=== PATIENT | female | born 1940 | race Caucasian/White ===

== ENCOUNTER 2018-03-22 20:11 | Emergency (ER) | payer OTHER ==
[~2018-03-22] VITALS: Ht 162.6 cm; Wt 79.8 kg
[~2018-03-22 20:11] MED LIST: AMLODIPINE BESYLATE; CALCAVITD PO; CRANBERRY PLUS1 EAC1 PO; Desyrel50 MG PO; EDARBYCLOR 40-1 EACH PO; ERGO400 PO; FOLI1 PO; FOLIC ACID; HCTZ; LOSARTAN POTASSIUM; MEGA RED PO; MEGARED OMEGA-1 EAC1 PO; METHOTREXATE; METTREX2.5 PO; OMEP20ER; PROBIOTIC1 EAC1 PO; TRAZONE; TURMERIC CURCUMIN PO; VITAMIN B122500 MCG PO
[2018-03-22] MEDS ORDERED: METO25ER PO (20:34)
[2018-03-22 21:27] LABS: Influenza A Negative (NEGATIVE); Influenza B Negative (NEGATIVE)
[2018-03-22 22:02] LABS: Source, Urine Clean Catch
[2018-03-22 22:05] LABS: Bilirubin, Urine Neg (Neg); Blood, Urine 2+ (Neg); Glucose Qualitative, Urine Neg (Neg); Ketones, Urine Neg (Neg); Leukocyte Esterase, Urine Neg (Neg); Nitrite, Urine Neg (Neg); Protein, Urine 2+ (Neg); Urobilinogen, Urine NORM (Normal)
[2018-03-22 22:12] LABS: Appearance, Urine Clear (Clear); Color, Urine Yellow (P-Yellow)
[2018-03-22 22:13] LABS: Amorphous Light (0-Heavy); Bacteria Many /hpf; Red Blood Cells, Urine 0-2 /hpf (0-2); Squamous Epithelial Cells Mod /hpf (Few); White Blood Cells, Urine 0-2 /hpf (0-5)
[2018-03-22 22:21] LABS: BASOPHILS ABSOLUTE AUTO 0.02 K/mm3 (0.00-0.23); BASOPHILS PERCENT AUTO 1 % (0-2); EOSINOPHILS ABSOLUTE AUTO 0.03 K/mm3 (0.00-0.68); EOSINOPHILS PERCENT AUTO 1 % (0-6); Hematocrit 35.2 % (33.0-51.0); Hemoglobin 11.9 g/dL (11.5-16.0); IMMATURE GRAN ABSOLUTE AUTO 0.01 K/mm3 (0.00-0.10); IMMATURE GRAN PERCENT AUTO 0 % (0-1); LYMPHOCYTES ABSOLUTE AUTO 0.28 K/mm3 (0.84-5.20); LYMPHOCYTES PERCENT AUTO 8 % (21-46); MONOCYTES PERCENT AUTO 3 % (4-13); Mean Corpuscular HGB 35.3 pg (26.0-34.0); Mean Corpuscular HGB Conc 33.8 g/dL (31.5-36.5); Mean Platelet Volume 10.8 fL (9.1-12.4); NEUTROPHILS ABSOLUTE AUTO 3.06 K/mm3 (1.96-9.15); NEUTROPHILS PERCENT AUTO 87 % (41-73); Platelet Count 75 K/mm3 (150-400); RDW Coefficient Variation 13.6 % (11.7-14.2); RDW Standard Deviation 51.2 fL (35.1-46.3); Red Blood Cell Count 3.37 M/mm3 (3.80-5.20)
[2018-03-22 22:23] LABS: Mean Corpuscular Volume 105 fL (80-100)
[2018-03-22 22:41] LABS: Albumin, Blood 3.8 g/dL (3.4-5.0); Albumin/Globulin Ratio 1.1 (0.8-1.8); Bun/Creatinine Ratio 34.4 (12.0-20.0); Calcium, Blood 9.2 mg/dL (8.5-10.1); Creatinine, Blood 1.31 mg/dL (0.40-1.00); Globulin, Blood 3.6 g/dL (2.2-4.0); Potassium, Blood 3.5 mmol/L (3.5-5.5); Total Protein, Blood 7.4 g/dL (6.4-8.2)
[2018-03-22] MEDS ORDERED: ALBU90OI INH (23:01)
[2018-03-22] MEDS ORDERED: LEVFLO500 PO (23:01)
== END 2018-03-22 23:22 | disposition home or self-care (01) ==
LOC: ER 20:11
PROVIDERS: Emergency Medicine
DX: J18.9 Pneumonia, unspecified organism (principal); E86.0 Dehydration; I12.9 Hypertensive chronic kidney disease with stage 1 through stage 4 chronic kidney disease, or unspecified chronic kidney disease; N18.9 Chronic kidney disease, unspecified; Z79.899 Other long term (current) drug therapy
CPT/HCPCS: 36415; 71046; 80053; 81001; 83605; 85025; 87086; 87804; 93005; 93010; 99284; P9612

== ENCOUNTER → 2018-11-28 | Outpatient (CLI) | payer OTHER ==
[~2018-11-28] MED LIST changes: +ALBU90OI INH; +LEVFLO500 PO; +METO25ER PO
== END ==
LOC: LAB 17:50 → LAB SHORT 17:50
DX: R30.0 Dysuria (principal)
CPT/HCPCS: 87077; 87086; 87186

== ENCOUNTER 2019-02-16 11:33 | Observation (INO) | payer OTHER ==
[~2019-02-16] VITALS: Ht 162.6 cm; Wt 71.7 kg
[~2019-02-16 11:33] MED LIST changes: +CHOL10002 PO; +EDARBYCLOR 40-1 EAC1 PO; -EDARBYCLOR 40-1 EACH PO; -ERGO400 PO; -MEGARED OMEGA-1 EAC1 PO; +MEGARED OMEGA-1 EAC2 PO; +VITAMIN B-121000 MCG PO; -VITAMIN B122500 MCG PO
[2019-02-16 12:18] LABS: BASOPHILS ABSOLUTE AUTO 0.03 K/mm3 (0.00-0.23); BASOPHILS PERCENT AUTO 0 % (0-2); EOSINOPHILS ABSOLUTE AUTO 0.07 K/mm3 (0.00-0.68); EOSINOPHILS PERCENT AUTO 1 % (0-6); Hematocrit 37.9 % (33.0-51.0); Hemoglobin 12.3 g/dL (11.5-16.0); IMMATURE GRAN ABSOLUTE AUTO 0.03 K/mm3 (0.00-0.10); IMMATURE GRAN PERCENT AUTO 0 % (0-1); LYMPHOCYTES ABSOLUTE AUTO 0.81 K/mm3 (0.84-5.20); LYMPHOCYTES PERCENT AUTO 11 % (21-46); MONOCYTES ABSOLUTE AUTO 0.73 K/mm3 (0.16-1.47); MONOCYTES PERCENT AUTO 10 % (4-13); Mean Corpuscular HGB 35.4 pg (26.0-34.0); Mean Corpuscular HGB Conc 32.5 g/dL (31.5-36.5); Mean Corpuscular Volume 109 fL (80-100); Mean Platelet Volume 10.8 fL (9.1-12.4); NEUTROPHILS ABSOLUTE AUTO 5.78 K/mm3 (1.96-9.15); NEUTROPHILS PERCENT AUTO 78 % (41-73); Platelet Count 156 K/mm3 (150-400); RDW Coefficient Variation 14.8 % (11.7-14.2); RDW Standard Deviation 59.4 fL (35.1-46.3); Red Blood Cell Count 3.47 M/mm3 (3.80-5.20); White Blood Cell Count 7.45 K/mm3 (4.00-11.30)
[2019-02-16 13:00] LABS: Alanine Aminotransfer (ALT/SGP 15 U/L (12-78); Albumin, Blood 3.4 g/dL (3.4-5.0); Albumin/Globulin Ratio 0.9 (0.8-1.8); Alk Phos 71 U/L (50-136); Anion Gap 6 mmol/L (6-16); Aspartate Aminotrans (AST/SGOT 34 U/L (12-37); Bilirubin, Total 1.2 mg/dL (0.1-1.0); Blood Urea Nitrogen 23 mg/dL (8-24); Bun/Creatinine Ratio 15.8 (12.0-20.0); CO2, Blood 25 mmol/L (21-32); Calcium, Blood 9.1 mg/dL (8.5-10.1); Chloride, Blood 107 mmol/L (98-108); Creatinine, Blood 1.46 mg/dL (0.40-1.00); Globulin, Blood 3.8 g/dL (2.2-4.0); Glomerular Filtration Rate 37 (60-); Glucose, Blood 119 mg/dL (70-99); Potassium, Blood 3.7 mmol/L (3.5-5.5); Sodium, Blood 138 mmol/L (136-145); Total Protein, Blood 7.2 g/dL (6.4-8.2); Troponin I <0.015 ng/mL (0.000-0.040)
[2019-02-16] MEDS ORDERED: TRAZ50 PO (14:17)
[2019-02-16] MEDS ORDERED: OMEPRAZOLE MAGN20 MG PO (15:38)
[2019-02-16 17:40] LABS: Thyroid Stimulating Hormone 0.873 uIU/mL (0.360-4.800)
--- NOTE | 2019-02-16 17:49 | NUR ---
PT IS AOX4 AND COOPERATIVE OF ALL CARE. PT DENIES ANY CHEST PAIN, BUT STATES SHE DOES GET SHORT OF BREATH AND EXPERIENCES PALPATATIONS. TELE WAS CONNECTED AND PCU REPORTED PT WAS AFIB RUNNING 130-150. DR CLANCY WAS NOTIFIED AND HE ORDERED METOPROLOL 50MG IR BID WITH FIRST DOSE NOW AND TO CALL HALF HOUR AFTER FIRST DOSE WITH VITALS. WILL CONTINUE TO MONITOR AT THIS TIME. PT STANDBY ASSIST JUST TO HELP WITH HER SCDs AND IV.
--- NOTE | 2019-02-16 18:43 | NUR ---
CALL FROM PCU TELE HALF HOUR AFTER METROPROLOL 50MG GIVEN STATED PT REVERTED TO NSR IN THE 80s.
--- NOTE | 2019-02-17 04:22 | NUR ---
78 Y/O FEMALE RESTED COMFORTABLY IN BED ALL EVENING. PT DENIES PAIN OR NAUSEA. PTS TELEMETRY REFLECTS NSR WITH HEART RATE 80 PER MEMBER SERVICES COORDINATOR MAYTE. PTS BED LOW POSITION, CALL LIGHT AT SIDE.
[2019-02-17 05:53] LABS: Bun/Creatinine Ratio 16.7 (12.0-20.0); Calcium, Blood 8.8 mg/dL (8.5-10.1); Creatinine, Blood 1.14 mg/dL (0.40-1.00); Potassium, Blood 3.8 mmol/L (3.5-5.5)
--- NOTE | 2019-02-17 11:34 | NUR ---
Echocardiogram completed.
[2019-02-17 12:30] LABS: International Normalized Ratio 1.11; Prothrombin Time Results 11.7 Sec (9.7-11.5)
--- NOTE | 2019-02-17 14:54 | NUR ---
CONSULT DR STEELE HAS BEEN IN TO SEE THE PT, PLAN FOR BIOPSY TOMORROW, NO NEED FOR HER TO BE NPO, PER DR STEELE
--- NOTE | 2019-02-17 17:08 | NUR ---
BIOPSY ULTRASOUND HAD AN OPENING, PT GOING FOR BIOPSY NOW
--- NOTE | 2019-02-17 17:37 | NUR ---
SUMMARY PT HAVING PROCEDURE NOW, SHE HAS BEEN ALERT AND ORIENTED AND MOSTLY INDEPENDENT IN THE ROOM, PLEASANT AND COOPERATIVE WITH CARE, DAUGHTER HAS BEEN IN TO VISIT, VSS, NO ACUTE CHANGES, WILL CONT TO MONITOR
--- NOTE | 2019-02-17 17:49 | NUR ---
TELE PT CONVERTED TO AFIB PER TELE, PT CURRENTLY IN PROCEDURE, WILL NOTIFY DR CLANCY
--- NOTE | 2019-02-17 17:52 | NUR ---
AFIB DR CLANCY NOTIFIED PT IN AFIB, RATE LOW 100'S, PT WITH A HISTORY OF AFIB
--- NOTE | 2019-02-17 18:12 | NUR ---
Pt visiting with daughter. Review of what Dr huggins explained for procedure. Pt complains of headache and nausea and fatigue. She has not been able to sleep. Brief supportive conversation and offered our office as aresource for support for and expressed that we need to help with a plan of care. Review of sympoms and patient needs with nursing. Suggest adding secondary nausea med if zofran not covering her well to reduce fatigue. Will see if chaplian support is needed. Did not cover ADvance directive as she needs to be full code for procedure and she wanted to speak with her daughter first.
--- NOTE | 2019-02-17 18:37 | NUR ---
PT BACK TO HER ROOM POST PROCEDURE, BANDAID IN PLACE TO HER R ANTERIOLATERAL SIDE OF HER NECK, NO DRAINAGE, PT VIVIANA WELL
--- NOTE | 2019-02-17 20:54 | NUR ---
NO ACUTE ISSUES NOTED, PATIENT CONVERTED BACK TO NSR @ 1847. NO CURRENT COMPLAINTS OF PAIN OR DISCOMFORT NOTED. WILL CONTINUE TO MONITOR FOR CHANGES.
--- NOTE | 2019-02-17 22:17 | NUR ---
2030 REPORT RECEIVED. PT RESTING COMFORTABLY IN BED, NO DISTRESS. BED ALARM APPLIED FOR SAFETY.
--- NOTE | 2019-02-18 05:03 | NUR ---
78 Y/O FEMALE RESTED COMFORTABLY IN BED ALL NIGHT. PTS TELEMETRY REFLECTS SINUS BRADYCARDIA PER JABOB DISABILITY MANAGER. PT DENIES PAIN OR NAUSEA. PTS CALL AT SIDE WITH BED IN LOW POSITION.
[2019-02-18] MEDS ORDERED: METO50 PO (11:46)
[2019-02-18] MEDS ORDERED: XARELTO15 MG PO (11:46)
[2019-02-18] MEDS ORDERED: ONDA4ODT PO (11:48)
--- NOTE | 2019-02-18 14:50 | NUR ---
CONVERTED FROM SR TO AFIB RATE 110'S-120'S, PT ASYMPTOMATIC, REPORTED TO DR CLANCY, STATES PT STILL OKAY TO DC AFTER CT COMPLETE @ 1500.
--- NOTE | 2019-02-18 16:57 | NUR ---
SHIFT SUMMARY/DC PT HAS HAD NO ACUTE CHANGES THIS SHIFT, MEDICATED 1X FOR NAUSEA, PT DC'D AFTER CT WAS COMPLETED, INSTRUCTED TO FOLLOW UP W/PRIMARY & ONCOLOGY. REVIEWED DC INSTRUCTIONS W/PT & DAUGHTERS, ALL VERBALIZED UNDERSTANDING. PT TRANSPORTED VIA W/C TO DC IN PRIVATE VEHICLE @ 2480.
== END 2019-02-18 16:00 | disposition home or self-care (01) ==
LOC: ER 11:33 → MEDS 11:34 → ENPENDDIS 02-18 11:00 → MEDS 02-18 16:00
PROVIDERS: Internal Medicine; Physician Assistant; ADMIT Internal Medicine
DX: R06.00 Dyspnea, unspecified (principal); N17.9 Acute kidney failure, unspecified; I12.9 Hypertensive chronic kidney disease with stage 1 through stage 4 chronic kidney disease, or unspecified chronic kidney disease; N18.3 Chronic kidney disease, stage 3 (moderate); I48.91 Unspecified atrial fibrillation; C34.32 Malignant neoplasm of lower lobe, left bronchus or lung; C79.89 Secondary malignant neoplasm of other specified sites; J98.11 Atelectasis; M06.9 Rheumatoid arthritis, unspecified; D69.6 Thrombocytopenia, unspecified; Z85.3 Personal history of malignant neoplasm of breast; Z88.5 Allergy status to narcotic agent; Z79.899 Other long term (current) drug therapy
CPT/HCPCS: 36415; 38505; 70450; 71046; 71250; 74177; 76942; 80048; 80053; 82607; 82746; 83880; 84145; 84443; 84484; 85025; 85610; 93005; 93010; 93306; 96360; 99285-25; J1650; J2405; J7120; Q9967

== ENCOUNTER 2019-03-11 09:03 | Inpatient (IN) | payer OTHER ==
[~2019-03-11] VITALS: Ht 162.6 cm; Wt 73.1 kg
[~2019-03-11 09:03] MED LIST changes: -CRANBERRY PLUS1 EAC1 PO; +CRANBERRY PO; +Lopressor 25 mg25 MG PO; +OMEPRAZOLE MAGN20 MG PO; +ONDA4ODT MM; +TRAZ50 PO; +XARELTO15 MG PO
[2019-03-11] MEDS ORDERED: FURO20 PO ×2 (09:21→16:38)
[2019-03-11] MEDS ORDERED: MIRT15 PO (09:21)
[2019-03-11 09:50] LABS: Alanine Aminotransfer (ALT/SGP 11 U/L (12-78); Albumin, Blood 2.5 g/dL (3.4-5.0); Alk Phos 63 U/L (50-136); Anion Gap 10 mmol/L (6-16); Aspartate Aminotrans (AST/SGOT 12 U/L (12-37); Bilirubin, Total 0.6 mg/dL (0.1-1.0); Blood Urea Nitrogen 34 mg/dL (8-24); Bun/Creatinine Ratio 36.2 (12.0-20.0); CO2, Blood 23 mmol/L (21-32); Calcium, Blood 8.4 mg/dL (8.5-10.1); Chloride, Blood 106 mmol/L (98-108); Creatinine, Blood 0.94 mg/dL (0.40-1.00); Globulin, Blood 2.6 g/dL (2.2-4.0); Glomerular Filtration Rate >60 (60-); Glucose, Blood 143 mg/dL (70-99); Magnesium, Blood 1.7 mg/dL (1.6-2.4); Potassium, Blood 3.8 mmol/L (3.5-5.5); Sodium, Blood 139 mmol/L (136-145); Total Protein, Blood 5.1 g/dL (6.4-8.2)
[2019-03-11 09:51] LABS: BASOPHILS ABSOLUTE AUTO 0.01 K/mm3 (0.00-0.23); BASOPHILS PERCENT AUTO 0 % (0-2); Mean Corpuscular HGB 34.2 pg (26.0-34.0); Mean Corpuscular HGB Conc 31.1 g/dL (31.5-36.5); Mean Corpuscular Volume 110 fL (80-100); RDW Coefficient Variation 13.6 % (11.7-14.2); RDW Standard Deviation 53.8 fL (35.1-46.3); White Blood Cell Count 4.19 K/mm3 (4.00-11.30)
[2019-03-11 09:57] LABS: EOSINOPHILS ABSOLUTE AUTO 0.08 K/mm3 (0.00-0.68); EOSINOPHILS PERCENT AUTO 2 % (0-6); IMMATURE GRAN ABSOLUTE AUTO 0.07 K/mm3 (0.00-0.10); IMMATURE GRAN PERCENT AUTO 2 % (0-1); LYMPHOCYTES ABSOLUTE AUTO 0.77 K/mm3 (0.84-5.20); LYMPHOCYTES PERCENT AUTO 18 % (21-46); MONOCYTES ABSOLUTE AUTO 0.28 K/mm3 (0.16-1.47); MONOCYTES PERCENT AUTO 7 % (4-13); Mean Platelet Volume 13.3 fL (9.1-12.4); NEUTROPHILS ABSOLUTE AUTO 2.98 K/mm3 (1.96-9.15); NEUTROPHILS PERCENT AUTO 71 % (41-73)
[2019-03-11 09:58] LABS: Hematocrit 13.2 % (33.0-51.0); Hemoglobin 4.1 g/dL (11.5-16.0)
[2019-03-11 09:59] LABS: Platelet Count 13 K/mm3 (150-400)
[2019-03-11] MEDS ORDERED: METTREX2.5 PO (13:41)
--- NOTE | 2019-03-11 17:00 | NUR ---
ASSUMED CARE / SHIFT SUMMARY: REPORT RECIEVED FROM STEVE Andujar RN IN ED. PT ARRIVED TO UNIT AT APPROX 1455. ON ARRIVAL, THE PT IS A&O, PLEASANT & COOPERATIVE. HER 2ND UNIT OF PRBCs IS INFUSING AT THE TIME OF ARRIVAL. THE PT's SKIN IS P/W/D. SHE DENIES PAIN & STS FEELING SLIGHTLY WEAK, BUT IMPROVING SINCE RECEIVING 1ST UNIT OF PRBCs. LS ARE CLEAR, DIM IN RLL, DIM/ABSENT IN LLL. SHE ARRIVES ON RA W/ O2 SATS > 92%, STS SHE DOES NOT WEAR HOME O2. MONITOR SHOWS NSR W/ HR 70s. BP STABLE. PT HAS HAD C/O DARK TARRY STLS AT HOME x1 WEEK, GUAIAC+ IN ED PER REPORT. PT VOIDED IN ED BUT NO URINE SPECIMEN WAS COLLECTED FOR ORDERED UA AT THAT TIME. SKIN OVERALL IS CDI. PROTONIX DRIP PER ORDERS. ADMISSION COMPLETE, MEDS RECONCILLED. NO ACUTE CHANGES SINCE ASSUMING CARE OF THIS PT. BLOOD TRANSFUSION HAS BEEN COMPLETED & PT REMAINS A&O. PT's DAUGHTERS HAVE STEPPED OUT FOR THE EVENING. FOLLOW-UP LABS BEING DRAWN AT THIS TIME. PT REMAINS ON RA, MONITOR SHOWS SR & BP STABLE. WILL CONTINUE TO MONITOR & REPORT OFF TO ONCOMING RN.
[2019-03-11 17:32] LABS: BASOPHILS ABSOLUTE AUTO 0.01 K/mm3 (0.00-0.23); BASOPHILS PERCENT AUTO 0 % (0-2); Hematocrit 20.6 % (33.0-51.0); Hemoglobin 6.8 g/dL (11.5-16.0); Mean Corpuscular HGB 32.1 pg (26.0-34.0); Mean Platelet Volume 12.6 fL (9.1-12.4); RDW Coefficient Variation 19.4 % (11.7-14.2); RDW Standard Deviation 66.5 fL (35.1-46.3); Red Blood Cell Count 2.12 M/mm3 (3.80-5.20)
[2019-03-11 17:40] LABS: Source, Urine Clean Catch
[2019-03-11 17:42] LABS: EOSINOPHILS ABSOLUTE AUTO 0.04 K/mm3 (0.00-0.68); EOSINOPHILS PERCENT AUTO 1 % (0-6); IMMATURE GRAN ABSOLUTE AUTO 0.03 K/mm3 (0.00-0.10); IMMATURE GRAN PERCENT AUTO 1 % (0-1); LYMPHOCYTES ABSOLUTE AUTO 0.97 K/mm3 (0.84-5.20); LYMPHOCYTES PERCENT AUTO 31 % (21-46); MONOCYTES ABSOLUTE AUTO 0.15 K/mm3 (0.16-1.47); MONOCYTES PERCENT AUTO 5 % (4-13); Mean Corpuscular Volume 97 fL (80-100); NEUTROPHILS PERCENT AUTO 61 % (41-73)
[2019-03-11 17:48] LABS: Platelet Count 13 K/mm3 (150-400)
[2019-03-11 18:07] LABS: Appearance, Urine Clear (Clear); Bilirubin, Urine Neg (Neg); Blood, Urine 2+ (Neg); Color, Urine Yellow (P-Yellow); Glucose Qualitative, Urine Neg (Neg); Ketones, Urine Neg (Neg); Leukocyte Esterase, Urine Neg (Neg); Nitrite, Urine Neg (Neg); Protein, Urine Neg (Neg); Urobilinogen, Urine 2+ (Normal)
--- NOTE | 2019-03-11 18:23 | NUR ---
DR. RESTREPO: CALL TO PROVIDER's PAGER HAS BEEN PLACED. PLAN TO NOTIFY HIM OF FOLLOW-UP H&H RESULTS WELL CRITICAL LOW PLT COUNT. WILL CONTINUE TO MONITOR & AWAIT CALLBACK.
--- NOTE | 2019-03-11 18:32 | NUR ---
DR. RESTREPO CALLBACK: CALL RETURNED FROM PROVIDER. HE STS TO TRANSFUSE 2 MORE UNITS OF PRBCs AT THIS TIME WELL 1 MORE UNIT PLTs & 2 UNITS OF FFP. AFTER TRANSFUSION COMPLETE, RECHECK H&H. CONTINUE TO TRANSFUSE PRBCs UNTIL HBG > 8. WILL CONTINUE TO MONITOR & UPDATE NEEDED.
[2019-03-11 18:34] LABS: Red Blood Cells, Urine 0-2 /hpf (0-2); White Blood Cells, Urine Rare /hpf (0-5)
[2019-03-11 18:35] LABS: Bacteria Rare /hpf; Mucus Light (0-Heavy); Squamous Epithelial Cells Few /hpf (Few)
--- NOTE | 2019-03-11 20:01 | NUR ---
HOSPITALIST NOTIFIED: START OF SHIFT ASSESSMENT PT NOTED TO HAVE RIGHT SIDED FACIAL DROOP AND SLIGHT RIGHT UPPER EXTREM DRIFT. PT'S DAUGHTER WHO IS AT BEDSIDE STATED THAT THIS WAS NEW. DR. TENORIO NOTIFIED AND CT SCAN W/O CONTRAST ORDERERED. LAB NOTIFIED RE: RECENT ORDER FOR PLATLETS AND RBC AND RELEASED UNIT READY SLIPS. WILL START NEXT UNIT OF PLATELETS THEN GO TO CT. MANAGER OF HOSPITAL NOTIFIED.
--- NOTE | 2019-03-11 21:47 | NUR ---
PT TO CT AT APPRX 1999 THEN BACK TO ROOM. RESULTS CALLED TO DR. TENORIO. NO NEW ORDERS GIVEN. PT CURRENTLY RECEIVING THIRD UNIT OF PRBC'S. PT UP TO BEDSIDE COMMODE WITH ONE-PERSON ASSIST. PT NOW BACK INTO BED WITH WARM BLANKETS APPLIED. VSS. CALL LIGHT WITHIN REACH.
--- NOTE | 2019-03-12 00:55 | NUR ---
PT WITH NO NEW CHANGES. PT'S RIGHT SIDED FACIAL DROOP IMPROVING, JENNIFER, PT GETTING UP TO BSC WITH MINIMAL ASSIST. PT RECEIVING UNIT #4 PRBC. PT TOLERATING WELL. VSS. CALL LIGHT WITHIN REACH.
[2019-03-12 04:18] LABS: BASOPHILS ABSOLUTE AUTO 0.01 K/mm3 (0.00-0.23); BASOPHILS PERCENT AUTO 1 % (0-2); Hematocrit 19.9 % (33.0-51.0); Hemoglobin 6.8 g/dL (11.5-16.0); LYMPHOCYTES ABSOLUTE AUTO 0.43 K/mm3 (0.84-5.20); LYMPHOCYTES PERCENT AUTO 24 % (21-46); MONOCYTES ABSOLUTE AUTO 0.15 K/mm3 (0.16-1.47); MONOCYTES PERCENT AUTO 8 % (4-13); Mean Corpuscular HGB 31.5 pg (26.0-34.0); Mean Corpuscular HGB Conc 34.2 g/dL (31.5-36.5); Mean Platelet Volume 10.7 fL (9.1-12.4); RDW Coefficient Variation 18.5 % (11.7-14.2); RDW Standard Deviation 59.8 fL (35.1-46.3); Red Blood Cell Count 2.16 M/mm3 (3.80-5.20); White Blood Cell Count 1.79 K/mm3 (4.00-11.30)
[2019-03-12 04:20] LABS: EOSINOPHILS ABSOLUTE AUTO 0.02 K/mm3 (0.00-0.68); EOSINOPHILS PERCENT AUTO 1 % (0-6); IMMATURE GRAN ABSOLUTE AUTO 0.07 K/mm3 (0.00-0.10); IMMATURE GRAN PERCENT AUTO 4 % (0-1); Mean Corpuscular Volume 92 fL (80-100); NEUTROPHILS ABSOLUTE AUTO 1.11 K/mm3 (1.96-9.15); NEUTROPHILS PERCENT AUTO 62 % (41-73)
[2019-03-12 04:21] LABS: Platelet Count 7 K/mm3 (150-400)
[2019-03-12 04:33] LABS: Alanine Aminotransfer (ALT/SGP 16 U/L (12-78); Albumin, Blood 2.6 g/dL (3.4-5.0); Alk Phos 61 U/L (50-136); Anion Gap 6 mmol/L (6-16); Aspartate Aminotrans (AST/SGOT 15 U/L (12-37); Bilirubin, Total 4.2 mg/dL (0.1-1.0); Blood Urea Nitrogen 28 mg/dL (8-24); Bun/Creatinine Ratio 31.9 (12.0-20.0); CO2, Blood 26 mmol/L (21-32); Chloride, Blood 111 mmol/L (98-108); Creatinine, Blood 0.88 mg/dL (0.40-1.00); Globulin, Blood 2.5 g/dL (2.2-4.0); Glomerular Filtration Rate >60 (60-); Glucose, Blood 105 mg/dL (70-99); Potassium, Blood 3.6 mmol/L (3.5-5.5); Sodium, Blood 143 mmol/L (136-145); Total Protein, Blood 5.1 g/dL (6.4-8.2)
--- NOTE | 2019-03-12 04:38 | NUR ---
DR. RESTREPO NOTIFIED: RE: CBC RESULTS AFTER ALL TRANSFUSIONS. NEW ORDERS TO INFUSE TWO MORE UNITS OF PRBC'S AND TO ALSO NOTIFY HOSPITALIST FOR FURTHER ORDERS.
--- NOTE | 2019-03-12 04:46 | NUR ---
HOSPITALIST NOTIFIED: UPDATED DR. CHEN ON PT AND RECENT CBC. IN ADDITION TO DR. RESTREPO'S ORDER TO INFUSE TWO MORE UNITS OF PRBC'S, ADDITIONAL ORDER GIVEN TO ALSO INFUSE TWO UNITS OF PLATELETS.
--- NOTE | 2019-03-12 06:06 | NUR ---
PT UP TO BSC. WOUND NOTED TO PT'S INNER RIGHT BUTTOCKS. PT STATED, "I'VE HAD IT FOR A WHILE. I THINK IT'S BECAUSE I SIT ALL THE TIME". SEE SIGNED CONSENT AND PHOTO.
--- NOTE | 2019-03-12 06:41 | NUR ---
DR. CHEN NOTIFIED: PT DEVELOPING COARSE LUNGS SOUNDS MOSTLY L UPPER LOBE. NO CRACKLES NOTED AT THIS TIME. PT REMAINS ON RA SATS 95%. NO NEW ORDERS AT THIS TIME BUT TO CONTINUE TO MONITOR PT AND CONSIDER CHEST XRAY IF PT BECOMES HYPOXIC/NOTIFY HOSPITALIST.
--- NOTE | 2019-03-12 07:00 | NUR ---
AM ASSESSMENT: REC'D BEDSIDE REPORT FROM CINDY GUILLORY AND AM NOW ASSUMING CARE OF PT. PT IS A+OX3. PLEASANT AND COOPERATIVE WITH CARE. PT REPORTS SHE IS "TIRED," DENIES ANY PAIN AT THIS TIME. PT ABLE TO ASSIST WITH TURNS IN THE BED AND REMAINS A SBA FOR CONTINUED WEAKENSS. SLOW, STEADY GAIT WITH TNX'S. LUNGS ARE CLEAR T/O, DIMINISHED IN THE BILATERAL BASES. 02 SATS >90% ON RA. HR SLIGTLY IRREGULAR, SR-80'S RANGE WITH PVC/PAC'S. BILATERAL ANKLE EDEMA PRESENT. PT REPORTS SHE WAS ON LASIX BUT HAS NOT "BEEN ON IT FOR SOME TIME NOW." PT CURRENTLY REC'ING PRBC'S AT THIS TIME. WILL RECHECK LABS WHEN ALL ADD'L PRBC'S AND FFP ARE GIVEN. PROTONIX GTT AND NS-TKO INFUSING. PT REMAINS NPO FOR POSSIBLE SCOPE, WILL DISCUSS WITH DR TALAVERA TODAY. ABS SOFT/ROUND/NON-TENDER TO PALPATION. PT C/O NAUSEA AT THIS TIME, WILL TX PER ORDERS. PT VOIDS CLEAR, YELLOW URINE PER BSC. -FULL CODE -CONTINUE MASS TRANSFUSION PROTOCOL
--- NOTE | 2019-03-12 07:29 | NUR ---
PT HAS C/O PERSISTENT NAUSEA. PT TX'D WITH ZOFRAN IVP PER ORDERS. PT GIVEN A COUPLE ICE CHIPS FOR COMFORT BUT REMAINS NPO UNTIL GI DR IS IN TO ASSESS PT AND DECIDE WHETHER PT NEEDS SCOPE TO F/U OF LOW H+H AND CONTINUED BLACK STOOLS.
--- NOTE | 2019-03-12 07:48 | NUR ---
DR AGUSTIN IN TO CONSULT WITH PT. DISCUSSED PT'S DIAGNOSIS/PLAN OF CARE.
--- NOTE | 2019-03-12 08:38 | NUR ---
DR TALAVERA IN TO CONSULT ON PT. DISCUSSED THAT HE WILL NOT DO AN EGD AT THIS TIME R/T CRITICALLY LOW PLT COUNTS. WILL CONTINUE SUPPORTIVE THERAPY AT THIS TIME. REPORTS TO PT THAT HE WILL ORDER A DIET NO SCOPE IS PLANNED AT THIS TIME. DISCUSSED FURTHER TX OPTIONS/PLAN OF CARE.
--- NOTE | 2019-03-12 09:15 | NUR ---
DR CORTEZ IN TO ASSESS PT. UPDATED HER WITH DR AGUSTIN/SADAF'S PLAN OF CARE. NO NEW ORDERS AT THIS TIME.
[2019-03-12 14:07] LABS: Base Excess Venous 3.7 mmol/L; Bicarbonate Venous 27.2 mmol/L (24.0-30.0); PCO2 Venous 38.9 mmHg (38-42); pH Blood Venous 7.46 (7.34-7.37)
[2019-03-12 14:07] LABS: BASOPHILS ABSOLUTE AUTO 0.02 K/mm3 (0.00-0.23); BASOPHILS PERCENT AUTO 1 % (0-2); Hematocrit 28.7 % (33.0-51.0); Hemoglobin 9.9 g/dL (11.5-16.0); Mean Corpuscular HGB 30.8 pg (26.0-34.0); Mean Corpuscular HGB Conc 34.5 g/dL (31.5-36.5); Mean Platelet Volume 11.4 fL (9.1-12.4); RDW Coefficient Variation 17.2 % (11.7-14.2); RDW Standard Deviation 54.4 fL (35.1-46.3); Red Blood Cell Count 3.21 M/mm3 (3.80-5.20); White Blood Cell Count 2.99 K/mm3 (4.00-11.30)
[2019-03-12 14:27] LABS: Mean Corpuscular Volume 89 fL (80-100)
[2019-03-12 14:31] LABS: EOSINOPHILS ABSOLUTE AUTO 0.04 K/mm3 (0.00-0.68); EOSINOPHILS PERCENT AUTO 1 % (0-6); IMMATURE GRAN ABSOLUTE AUTO 0.06 K/mm3 (0.00-0.10); IMMATURE GRAN PERCENT AUTO 2 % (0-1); LYMPHOCYTES ABSOLUTE AUTO 0.43 K/mm3 (0.84-5.20); LYMPHOCYTES PERCENT AUTO 14 % (21-46); MONOCYTES ABSOLUTE AUTO 0.14 K/mm3 (0.16-1.47); MONOCYTES PERCENT AUTO 5 % (4-13); NEUTROPHILS PERCENT AUTO 77 % (41-73)
[2019-03-12 15:01] LABS: International Normalized Ratio 1.08; Prothrombin Time Results 11.4 Sec (9.7-11.5)
[2019-03-12 15:14] LABS: Platelet Count 12 K/mm3 (150-400)
--- NOTE | 2019-03-12 17:00 | NUR ---
FAMILY: THIS RN SPOKE EXTENSIVELY WITH PT/FAMILY IN RE: PT'S STATUS, CURRENT TX'S, FURTHER TESTING, PLAN OF CARE, AND DISCHARGE PLANS.
--- NOTE | 2019-03-12 18:23 | NUR ---
SHIFT SUMMARY: PT IS ALERT AND ORIENTED X3. PLEASANT AND COOPERATIVE WITH CARE. SOMEWHAT FLAT AFFECT, MAY JUST BE R/T FATIGUE. NO C/O PAIN AT THIS TIME OR T/O SHIFT. PT IS A SBA WITH TNX'S/ADL'S. PT USING BSC AND CALLS APPROPRIATLEY WITH NEEDS. PT HAS A STEADY GAIT BUT JUST NEEDS ASSIST WITH IV LINES/CORDS. LUNGS ARE CLEAR BUT DIMINISHED IN THE BILATERAL BASES, MORESO IN THE LLL. PT BEING TX'D FOR LLL LUNG CA WITH CHEMO. HR REGULAR, SR 70-80'S RANGE. PT REC'D A TOTAL OF 2 UNITS PRBC'S AND 2 UNITS PLTS TODAY. ABD SOFT/ROUND/NON-TENDER. BT'S X4. PT HAS HAD SEVERAL SMALL, LIQUID, BLACK STOOLS PER BSC. CONTINUE TO MONITOR FOR GIB BLEEDING. PT HAD MULTIPLE 100-250ML URINE VOIDS THIS SHIFT AFTER REC'ING LASIX. -FULL CODE -MONITOR H+H -ASSIST WITH TNX/ADL'S
--- NOTE | 2019-03-12 19:15 | NUR ---
REPORTED OFF TO CINDY GUILLORY WHOM IS ASSUMING CARE OF PT.
[2019-03-13 04:17] LABS: BASOPHILS ABSOLUTE AUTO 0.02 K/mm3 (0.00-0.23); BASOPHILS PERCENT AUTO 0 % (0-2); Hematocrit 26.3 % (33.0-51.0); Hemoglobin 8.9 g/dL (11.5-16.0); Mean Corpuscular HGB 30.5 pg (26.0-34.0); Mean Corpuscular HGB Conc 33.8 g/dL (31.5-36.5); Mean Corpuscular Volume 90 fL (80-100); Mean Platelet Volume 11.3 fL (9.1-12.4); NRBC ABSOLUTE 0.02 K/mm3 (0.00-0.02); NRBC Auto 0.3 /100 WBC (0.0-0.2); RDW Coefficient Variation 17.2 % (11.7-14.2); RDW Standard Deviation 56.1 fL (35.1-46.3); Red Blood Cell Count 2.92 M/mm3 (3.80-5.20); White Blood Cell Count 5.75 K/mm3 (4.00-11.30)
[2019-03-13 04:19] LABS: EOSINOPHILS ABSOLUTE AUTO 0.06 K/mm3 (0.00-0.68); EOSINOPHILS PERCENT AUTO 1 % (0-6); IMMATURE GRAN ABSOLUTE AUTO 0.15 K/mm3 (0.00-0.10); IMMATURE GRAN PERCENT AUTO 3 % (0-1); LYMPHOCYTES ABSOLUTE AUTO 0.81 K/mm3 (0.84-5.20); LYMPHOCYTES PERCENT AUTO 14 % (21-46); MONOCYTES ABSOLUTE AUTO 0.35 K/mm3 (0.16-1.47); MONOCYTES PERCENT AUTO 6 % (4-13); NEUTROPHILS ABSOLUTE AUTO 4.36 K/mm3 (1.96-9.15); NEUTROPHILS PERCENT AUTO 76 % (41-73)
[2019-03-13 04:20] LABS: Platelet Count 8 K/mm3 (150-400)
--- NOTE | 2019-03-13 04:21 | NUR ---
BROWN STOOL: PT UP TO BSC FOR BM. STOOL BROWN/YELLOW SMALL SOFT.
[2019-03-13 04:34] LABS: Albumin, Blood 2.7 g/dL (3.4-5.0); Anion Gap 6 mmol/L (6-16); Blood Urea Nitrogen 20 mg/dL (8-24); Bun/Creatinine Ratio 20.7 (12.0-20.0); CO2, Blood 28 mmol/L (21-32); Calcium, Blood 8.3 mg/dL (8.5-10.1); Chloride, Blood 110 mmol/L (98-108); Creatinine, Blood 0.97 mg/dL (0.40-1.00); Glomerular Filtration Rate 59 (60-); Glucose, Blood 90 mg/dL (70-99); Phosphorus, Blood 2.7 mg/dL (2.5-4.9); Sodium, Blood 144 mmol/L (136-145)
--- NOTE | 2019-03-13 04:53 | NUR ---
HOSPITALIST NOTIFIED AND UPDATED: NEW ORDERS FOR KCL 60 mEq IV. cL PLATELET VALUE GIVEN IN ADDITION TO UPDATE.
--- NOTE | 2019-03-13 05:35 | NUR ---
DR. RESTREPO AT BEDSIDE APPROX 0500 AND STATED PT MAY STATUS CHANGE.
--- NOTE | 2019-03-13 05:40 | NUR ---
PT RESTED WELL THROUGH NOC. UP TO BSC WHEN NEEDED-PT TOLERATING WELL. VS REMAINED STABLE. PT WITH TWO VERY SMALL BROWN LIQUID STOOL. DR. RESTREPO TO ROOM THIS AM AND SPOKE WITH PT AND STATED PT MAY STATUS CHANGE TODAY.
--- NOTE | 2019-03-13 07:30 | NUR ---
ASSUMED CARE OF PATIENT; SEE ASSESSMENT CHARTING FOR DETAILS. PATIENT PLEASANT AND COOPERATIVE; DENIES DISCOMFORT. LUNGS CLEAR; BIOX 95% OR > ON ROOM AIR. MONITOR REMAINS NSR WITH RARE ECTOPY; VSS AND AFEBRILE. UP TO BSC WITH SBA; BALANCE FAIR. STOOLS NO LONGER DARK BLACK OR BLOODY; BROWN TO BILE COLORED. VOIDING SMALL AMOUNTS OF MARILIN URINE.
--- NOTE | 2019-03-13 09:05 | NUR ---
DR. CORTEZ CAME BY; PATIENT MAY CHANGE TO PCU STATUS IF OKAY WITH GI DOCTOR. WANTS 2 PACKS OF PLATELETS GIVEN, TODAY.
--- NOTE | 2019-03-13 10:00 | NUR ---
T/C FROM BLOOD BANK TO INFORM THAT 1 BAG OF PLATELETS AVAILABLE AND REQUEST SLIP WILL BE SENT DOWN; NO OTHER BAGS ON HAND AT HOSPITAL; ORDERED AND SHOULD ARRIVE THIS AFTERNOON.
--- NOTE | 2019-03-13 11:30 | NUR ---
PLATELETS COMPLETED WELL KCL IVPB. REMAINS ON 10CC/HR OF PROTONIX (DRIP).
--- NOTE | 2019-03-13 15:30 | NUR ---
2ND BAG OF PLATELETS ARRIVED AND WILL BE TRANSFUSED.
--- NOTE | 2019-03-13 15:55 | NUR ---
T/C TO DR. JETT TO SEE IF PATIENTS' DIET CAN BE ADVANCED WELL STATUS CHANGED TO PCU. AGREEABLE WITH BOTH REQUESTS AND ALSO WANTS PROTONIX DRIP DC'D AND CHANGED TO 40MG IV BID.
--- NOTE | 2019-03-13 17:14 | NUR ---
REPROT TAKEN FROM MARANDA CARCAMO RN, WILL FOLLOW AND CARE FOR PT REMAINDER OF SHIFT.
--- NOTE | 2019-03-13 17:15 | NUR ---
TRANSFER CARE TO GISEL JIMÉNEZ RN; NO ACUTE C/O'S.
--- NOTE | 2019-03-13 19:30 | NUR ---
ASSUME CARE; REPORT RECIEVED FROM OFF GOING RN GISEL. VISIST WITH VISITOR IN ROOM. MONITOR INTACT SHOWING SINUS RHYTHM/SINUS GABRIELLE . HEART RATE 50'S-60'S. CO NAUSEA MEDICATED WITH ZOFRAN 4MG IV. LUNGS DECREASED T/O RESPIRATIONS REGULAR AND EASY AT REST. BECOMES SHORT OF BREATH WITH ANY EXERTION.ABDOMEN SOFT WITH BOWEL SOUNDS FOUR QUADS. VOIDS MARILIN URINE PER BSC WITH MINIMAL ONE PERSON ASSIST. PAS TO LOWER EXTREMITIES. CONTINUE TO MONITOR AND REPORT CHANGE IN PATIENT CONDITION
[2019-03-14 03:48] LABS: BASOPHILS ABSOLUTE AUTO 0.04 K/mm3 (0.00-0.23); BASOPHILS PERCENT AUTO 1 % (0-2); EOSINOPHILS ABSOLUTE AUTO 0.07 K/mm3 (0.00-0.68); EOSINOPHILS PERCENT AUTO 1 % (0-6); Hematocrit 26.6 % (33.0-51.0); Hemoglobin 9.2 g/dL (11.5-16.0); Mean Corpuscular HGB 32.3 pg (26.0-34.0); Mean Corpuscular HGB Conc 34.6 g/dL (31.5-36.5); NRBC ABSOLUTE 0.05 K/mm3 (0.00-0.02); NRBC Auto 0.7 /100 WBC (0.0-0.2); RDW Coefficient Variation 16.8 % (11.7-14.2); RDW Standard Deviation 55.2 fL (35.1-46.3); Red Blood Cell Count 2.85 M/mm3 (3.80-5.20); White Blood Cell Count 6.96 K/mm3 (4.00-11.30)
[2019-03-14 04:02] LABS: Albumin, Blood 2.8 g/dL (3.4-5.0); Anion Gap 5 mmol/L (6-16); Blood Urea Nitrogen 13 mg/dL (8-24); Bun/Creatinine Ratio 13.5 (12.0-20.0); CO2, Blood 27 mmol/L (21-32); Calcium, Blood 8.4 mg/dL (8.5-10.1); Chloride, Blood 108 mmol/L (98-108); Creatinine, Blood 0.97 mg/dL (0.40-1.00); Glomerular Filtration Rate 59 (60-); Glucose, Blood 108 mg/dL (70-99); Magnesium, Blood 1.5 mg/dL (1.6-2.4); Phosphorus, Blood 1.8 mg/dL (2.5-4.9); Potassium, Blood 3.5 mmol/L (3.5-5.5); Sodium, Blood 140 mmol/L (136-145)
[2019-03-14 04:11] LABS: IMMATURE GRAN ABSOLUTE AUTO 0.45 K/mm3 (0.00-0.10); IMMATURE GRAN PERCENT AUTO 7 % (0-1); LYMPHOCYTES ABSOLUTE AUTO 0.71 K/mm3 (0.84-5.20); LYMPHOCYTES PERCENT AUTO 10 % (21-46); MONOCYTES ABSOLUTE AUTO 0.66 K/mm3 (0.16-1.47); MONOCYTES PERCENT AUTO 10 % (4-13); Mean Corpuscular Volume 93 fL (80-100); NEUTROPHILS ABSOLUTE AUTO 5.03 K/mm3 (1.96-9.15); NEUTROPHILS PERCENT AUTO 72 % (41-73); Platelet Count 15 K/mm3 (150-400)
[2019-03-14 04:14] LABS: BAND PERCENT MAN 1 % (0-8); BASOPHILS PERCENT MAN 0 % (0-2); BLASTS PERCENT MAN 1 % (0-0); EOSINOPHILS ABSOLUTE MAN 0.27 K/mm3 (0.00-0.68); EOSINOPHILS PERCENT MAN 4 % (0-6); LYMPHOCYTES ABSOLUTE MAN 0.83 K/mm3 (0.84-5.20); LYMPHOCYTES PERCENT MAN 12 % (21-46); METAMYELOCYTE ABSOLUTE MAN 0.06 K/mm3 (0.00-0.00); METAMYELOCYTE PERCENT MAN 1 % (0-0); MONOCYTES ABSOLUTE MAN 0.27 K/mm3 (0.16-1.47); MONOCYTES PERCENT MAN 4 % (4-13); MYELOCYTE ABSOLUTE MAN 0.06 K/mm3 (0.00-0.00); MYELOCYTE PERCENT MAN 1 % (0-0); NEUTROPHILS ABSOLUTE MAN 5.22 K/mm3 (1.96-9.15); PROMYELOCYTE ABSOLUTE MAN 0.13 K/mm3 (0.00-0.00); PROMYELOCYTE PERCENT MAN 2 % (0-0); SEG NEUTROPHILS PERCENT MAN 74 % (41-73); TOTAL CELLS COUNTED 100
--- NOTE | 2019-03-14 06:39 | NUR ---
SHIFT SUMMARY; RESTS QUIETLY WHEN UNDISTURBED. MONITOR INTACT SHOWING SINUS GABRIELLE/SINUS RHYTHM . HEART RATE 50'S-60'S. CO NAUSEA MEDICATED WITH ZOFRAN TIMES TWO THIS SHIFT. LUNGS DECREASED T/O. RESPIRATIONS REGULAR AND EASY AT REST BECOMES SHORT OF BREATH WITH EXERTION. SPO2 95-97% ABDOMEN SOFT WITH BOWEL SOUNDS FOUR QUADS. VOIDS MARILIN URINE PER BSC WITH MINIMAL ONE PERSON ASSIST WITH SMALL UNFORMED SOFT STOOL. PAS TO LOWER EXTREMITIES. CONTINUE TO MONITOR AND REPORT CHANGE IN PATIENT CONDITION
--- NOTE | 2019-03-14 07:00 | NUR ---
RECEIVED REPORT FROM CINDY ESCUDERO, AND ASSUMED CARE OF PT.
--- NOTE | 2019-03-14 07:30 | NUR ---
NURSING SUMMARY ALERT AND ORIENTED X 4. NSR ON MONITOR, HR 67, HYPERTENSIVE, WILL GIVE ROUTINE LOPRESSOR EARLY. LUNGS CLEAR THROUGHOUT, DIMINISHED AT THE BASES, SATS 96% ON ROOM AIR, MILD DYSPNEA WITH EXERTION. ASSISTED OUT OF BED TO THE BEDSIDE COMMODE, BM BROWN/LOOSE. C/O NAUSEA X 3 DAYS, STATES ZOFRAN IS NOT WORKING. CALLED DR. NOVA AND OBTAINED NEW ORDER FOR PHENERGAN. ADVISED DR. NOVA OF LOW MAGNESIUM, NEW ORDER FOR MAGNESIUM SULFATE 2G IV NOW. DR. NOVA TO REVIEW ELECTROLYTES AND ORDER PHOSPHORUS REPLACEMENT. VOIDS PER BEDSIDE COMMODE. CALLS FOR ASSISTANCE OUT OF BED APPROPRIATELY. HEALING DECUB TO RIGHT BUTTOCK, CHANGED MEPILEX DRESSING. LEFT WRIST 22G AND KRISTIAN POWERGLIDE SALINE LOCKED AT THIS TIME.
--- NOTE | 2019-03-14 08:13 | NUR ---
DR. NOVA AT BEDSIDE FOR EVALUATION.
--- NOTE | 2019-03-14 14:03 | NUR ---
Mrs. Medrano is fiercly independant and tells me she has wonderful support from her dtrs and grandchildren. She tells me she has beaten cancer before. "I plan to fight till the end!" She told me about her life and she has endured and overcome a great deal of hardships. 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 She wants to remain independant. Two of her dtr's live very near her home and a grand-daughter lives next-door. She feels well loved. She is non-religios, but beleives in God. She does not beleive she is nearing end of life and plans to continue cancer treatments. She is hopeful for a cure. I supported and affirmed her beliefs and complimented her strength/endurance. I will remain available.
--- NOTE | 2019-03-14 19:13 | NUR ---
GAVE REPORT TO YOLIS INFECTION PREVENTION PRACTITIONER, WHOM WILL ASSUME CARE WHEN ICU EMOTIONAL DISABILITIES TEACHER TRANSFERS PT TO ROOM 230.
--- NOTE | 2019-03-14 19:22 | NUR ---
1921: PT ARRIVES TO ROOM 230 AND TRANSFERS SELF TO BED; APPEARS STEADY ON FEET. PT DENIES PAIN WITH MOVEMENT OR SEVERE NAUSEA AT TIME OF TRANSFER. FAMILY @ BEDSIDE. CALL LIGHT IN REACH.
[2019-03-15 06:58] LABS: Hematocrit 28.2 % (33.0-51.0); Hemoglobin 9.5 g/dL (11.5-16.0); Mean Corpuscular HGB 31.1 pg (26.0-34.0); Mean Corpuscular HGB Conc 33.7 g/dL (31.5-36.5); Mean Corpuscular Volume 93 fL (80-100); NRBC ABSOLUTE 0.07 K/mm3 (0.00-0.02); NRBC Auto 0.9 /100 WBC (0.0-0.2); RDW Standard Deviation 52.8 fL (35.1-46.3); Red Blood Cell Count 3.05 M/mm3 (3.80-5.20); White Blood Cell Count 7.79 K/mm3 (4.00-11.30)
[2019-03-15 07:11] LABS: Alanine Aminotransfer (ALT/SGP 18 U/L (12-78); Albumin, Blood 2.8 g/dL (3.4-5.0); Alk Phos 87 U/L (50-136); Anion Gap 5 mmol/L (6-16); Aspartate Aminotrans (AST/SGOT 20 U/L (12-37); Bilirubin, Total 2.2 mg/dL (0.1-1.0); Blood Urea Nitrogen 10 mg/dL (8-24); Bun/Creatinine Ratio 11.9 (12.0-20.0); CO2, Blood 27 mmol/L (21-32); Calcium, Blood 8.5 mg/dL (8.5-10.1); Chloride, Blood 106 mmol/L (98-108); Creatinine, Blood 0.84 mg/dL (0.40-1.00); Globulin, Blood 2.8 g/dL (2.2-4.0); Glomerular Filtration Rate >60 (60-); Glucose, Blood 114 mg/dL (70-99); Magnesium, Blood 1.8 mg/dL (1.6-2.4); Mean Platelet Volume 13.2 fL (9.1-12.4); Phosphorus, Blood 1.8 mg/dL (2.5-4.9); Platelet Count 36 K/mm3 (150-400); Potassium, Blood 3.5 mmol/L (3.5-5.5); Sodium, Blood 138 mmol/L (136-145); Total Protein, Blood 5.6 g/dL (6.4-8.2)
[2019-03-15 07:19] LABS: BAND PERCENT MAN 3 % (0-8); BASOPHILS PERCENT MAN 0 % (0-2); EOSINOPHILS PERCENT MAN 0 % (0-6); LYMPHOCYTES ABSOLUTE MAN 0.85 K/mm3 (0.84-5.20); LYMPHOCYTES PERCENT MAN 11 % (21-46); METAMYELOCYTE ABSOLUTE MAN 0.23 K/mm3 (0.00-0.00); METAMYELOCYTE PERCENT MAN 3 % (0-0); MONOCYTES ABSOLUTE MAN 0.15 K/mm3 (0.16-1.47); MONOCYTES PERCENT MAN 2 % (4-13); MYELOCYTE ABSOLUTE MAN 0.23 K/mm3 (0.00-0.00); MYELOCYTE PERCENT MAN 3 % (0-0); NEUTROPHILS ABSOLUTE MAN 6.15 K/mm3 (1.96-9.15); PROMYELOCYTE ABSOLUTE MAN 0.15 K/mm3 (0.00-0.00); PROMYELOCYTE PERCENT MAN 2 % (0-0); SEG NEUTROPHILS PERCENT MAN 76 % (41-73); TOTAL CELLS COUNTED 100
--- NOTE | 2019-03-15 07:37 | NUR ---
SUMMARY: ICU TRANSFER FOLLOWED BY DR. OBRIEN AND DR. FRANCOIS. VSS, AFEBRILE, PT STATES MILD SOB AT REST IS HER BASELINE GIVEN RIGHT LOBECTOMY. UP SBA AND TOELRATES BRP WELL. DENIES DIZZINESS, INCREASED SOB OR PAIN WITH ACTIVITY. MORNING LABS AND POSSIBLE DC HOME LATER THIS DAY.
[2019-03-15] MEDS ORDERED: K-Phos Origina500 MG PO (12:37)
--- NOTE | 2019-03-15 14:19 | NUR ---
DISCHARGE PT AND HER DAUGHTER WERE PROVIDED WITH WRITTEN AND VERBAL DISCHARGE INSTRUCTIONS. THEY REPORTED UNDERSTANDING. PT EDUCATED TO WEAR MASK WHEN IN PUBLIC TO AVOID ILLNESS. PT EDUCATED ABOUT HAND WASHING. PT ESCORTED OUT IN W/C BY JEWEL CARRIZALES.
== END 2019-03-15 14:00 | disposition home or self-care (01) | DRG 377 ==
LOC: ER 09:03 → ICUE 13:12 → ICUW 13:12 → ICUE 14:25 → SURS 03-14 20:07
PROVIDERS: Emergency Medicine; Internal Medicine; ADMIT Internal Medicine
PROC: 30233N1 Transfusion of Nonautologous Red Blood Cells into Peripheral Vein, Percutaneous Approach (ICD-10-PCS; principal; 2019-03-11)
PROC: 30233K1 Transfusion of Nonautologous Frozen Plasma into Peripheral Vein, Percutaneous Approach (ICD-10-PCS; 2019-03-11)
PROC: 30233R1 Transfusion of Nonautologous Platelets into Peripheral Vein, Percutaneous Approach (ICD-10-PCS; 2019-03-11)
DX: K92.2 Gastrointestinal hemorrhage, unspecified (principal); D61.810 Antineoplastic chemotherapy induced pancytopenia; C34.90 Malignant neoplasm of unspecified part of unspecified bronchus or lung; N25.81 Secondary hyperparathyroidism of renal origin; D62 Acute posthemorrhagic anemia; Z87.891 Personal history of nicotine dependence; D69.6 Thrombocytopenia, unspecified; M06.9 Rheumatoid arthritis, unspecified; I48.0 Paroxysmal atrial fibrillation; N18.3 Chronic kidney disease, stage 3 (moderate); Z85.3 Personal history of malignant neoplasm of breast; Z92.21 Personal history of antineoplastic chemotherapy; D72.819 Decreased white blood cell count, unspecified; E87.70 Fluid overload, unspecified; K21.9 Gastro-esophageal reflux disease without esophagitis; E87.6 Hypokalemia; I12.9 Hypertensive chronic kidney disease with stage 1 through stage 4 chronic kidney disease, or unspecified chronic kidney disease
CPT/HCPCS: 36415; 36416; 36430; 70450; 71046; 80053; 80069; 81001; 82272; 82330; 82803; 83605; 83735; 84100; 85025; 85384; 85610; 85730; 86850; 86900; 86901; 86923; 87493; 93005; 93010; 96365; 96366; 96376; 99285-25; C1751; C9113; J1447; J1940; J2405; J2550; J3475; J3480; J7030; J7040; P9016; P9035; P9059

== ENCOUNTER → 2019-05-18 | Outpatient (CLI) | payer OTHER ==
[~2019-05-18] MED LIST changes: +ESOM20 PO; +FURO20 PO; +K-Phos Origina500 MG PO; +METO10 PO; +MIRT15 PO; +Ondansetron Odt8 MG PO; +PRED20 PO
[2019-05-18 15:40] LABS: BASOPHILS ABSOLUTE AUTO 0.05 K/mm3 (0.00-0.23); BASOPHILS PERCENT AUTO 1 % (0-2); EOSINOPHILS ABSOLUTE AUTO 0.03 K/mm3 (0.00-0.68); EOSINOPHILS PERCENT AUTO 1 % (0-6); Hematocrit 26.4 % (33.0-51.0); Hemoglobin 8.2 g/dL (11.5-16.0); IMMATURE GRAN ABSOLUTE AUTO 0.12 K/mm3 (0.00-0.10); IMMATURE GRAN PERCENT AUTO 3 % (0-1); LYMPHOCYTES ABSOLUTE AUTO 0.67 K/mm3 (0.84-5.20); LYMPHOCYTES PERCENT AUTO 15 % (21-46); MONOCYTES ABSOLUTE AUTO 0.43 K/mm3 (0.16-1.47); MONOCYTES PERCENT AUTO 9 % (4-13); Mean Corpuscular HGB 32.8 pg (26.0-34.0); Mean Corpuscular HGB Conc 31.1 g/dL (31.5-36.5); Mean Corpuscular Volume 106 fL (80-100); Mean Platelet Volume 12.2 fL (9.1-12.4); NEUTROPHILS ABSOLUTE AUTO 3.28 K/mm3 (1.96-9.15); NEUTROPHILS PERCENT AUTO 72 % (41-73); Platelet Count 58 K/mm3 (150-400); RDW Coefficient Variation 18.4 % (11.7-14.2); RDW Standard Deviation 70.8 fL (35.1-46.3); White Blood Cell Count 4.58 K/mm3 (4.00-11.30)
[2019-05-18 16:16] LABS: Alanine Aminotransfer (ALT/SGP 14 U/L (12-78); Albumin, Blood 2.9 g/dL (3.4-5.0); Albumin/Globulin Ratio 0.9 (0.8-1.8); Alk Phos 92 U/L (50-136); Anion Gap 7 mmol/L (6-16); Aspartate Aminotrans (AST/SGOT 13 U/L (12-37); Bilirubin, Total 1.1 mg/dL (0.1-1.0); Blood Urea Nitrogen 8 mg/dL (8-24); Bun/Creatinine Ratio 9.6 (12.0-20.0); CO2, Blood 29 mmol/L (21-32); Calcium, Blood 8.8 mg/dL (8.5-10.1); Chloride, Blood 103 mmol/L (98-108); Creatinine, Blood 0.84 mg/dL (0.40-1.00); Globulin, Blood 3.4 g/dL (2.2-4.0); Glomerular Filtration Rate >60 (60-); Glucose, Blood 123 mg/dL (70-99); Potassium, Blood 3.1 mmol/L (3.5-5.5); Sodium, Blood 139 mmol/L (136-145); Total Protein, Blood 6.3 g/dL (6.4-8.2)
== END | disposition home or self-care (01) ==
LOC: LAB 15:10 → LAB SHORT 15:10
PROVIDERS: Internal Medicine Hematology & Oncology
DX: D49.1 Neoplasm of unspecified behavior of respiratory system (principal)
CPT/HCPCS: 80053; 85025

== ENCOUNTER 2019-05-22 00:05 | Day surgery (SDC) | payer OTHER ==
[~2019-05-22 00:05] MED LIST changes: -ESOM20 PO; -METO10 PO; -Ondansetron Odt8 MG PO; -PRED20 PO
--- NOTE | 2019-05-22 14:08 | NUR ---
Pop TEIXEIRA RN ATTEMPTED IV START X2 AND MIGUEL RNC TRIED 2X.
--- NOTE | 2019-05-22 14:10 | NUR ---
LEFT LUNG BASE DECREASED PRE-TX.
[2019-05-22] MEDS ORDERED: TRAZ50 PO ×2 (14:45)
[2019-05-22] MEDS ORDERED: METO10 PO (14:46)
[2019-05-22] MEDS ORDERED: Ondansetron Odt8 MG PO (14:46)
== END 2019-05-22 16:11 | disposition home or self-care (01) ==
LOC: ATC 00:05
DX: D69.59 Other secondary thrombocytopenia (principal); C34.12 Malignant neoplasm of upper lobe, left bronchus or lung; D61.810 Antineoplastic chemotherapy induced pancytopenia; I10 Essential (primary) hypertension; E11.9 Type 2 diabetes mellitus without complications; E78.00 Pure hypercholesterolemia, unspecified; Z88.6 Allergy status to analgesic agent; Z87.891 Personal history of nicotine dependence
CPT/HCPCS: 36415; 36430; 71260; 74177; 86850; 86870; 86900; 86901; 86902; 86905; 86922; J7050; P9016; Q9967

== ENCOUNTER → 2019-05-30 | Outpatient (CLI) | payer OTHER ==
[~2019-05-30] MED LIST changes: +ESOM20 PO; +METO10 PO; +Ondansetron Odt8 MG PO; +PRED20 PO
== END | disposition home or self-care (01) ==
LOC: LAB 06:13 → LAB SHORT 06:13 → LAB FUT 05-29 18:55
DX: R11.2 Nausea with vomiting, unspecified (principal); R19.7 Diarrhea, unspecified
CPT/HCPCS: 87338

== ENCOUNTER 2019-06-14 07:35 | Day surgery (SDC) | payer OTHER ==
[~2019-06-14] VITALS: Ht 162.6 cm; Wt 64.1 kg
[~2019-06-14 07:35] MED LIST changes: -ESOM20 PO; -PRED20 PO
[2019-06-14] MEDS ORDERED: ESOM20 PO (08:37)
[2019-06-14] MEDS ORDERED: PRED20 PO (08:39)
--- NOTE | 2019-06-14 08:51 | NUR ---
INTO SDS VIA WHEELCHAIR. PT REPORTS 05/31 "FOOT PAIN." History, Chart, Medications and Allergies reviewed before start of procedure.LUNGS DIMINISHED TO BASES, BUT SATS>90% ON RA AND NO NOTED SOB. Patient confirms NPO status and agrees with scheduled surgery. Patient reports completing Chlorhexadine shower X2 prior to admission to hospital.Surgical site prepped with 2% Chlorhexidine cloth wipe. Patient States Post-Procedure ride home has been arranged.
--- NOTE | 2019-06-14 10:11 | NUR ---
"DAY SURGERY RN | ASSUMED CARE FROM THEE WHITE. Patient resting comfortably. Denies needs."
--- NOTE | 2019-06-14 11:11 | NUR ---
"DAY SURGERY RN | REPORT TO SATURNINO WHITE"
--- NOTE | 2019-06-14 11:52 | NUR ---
"DAY SURGERY | report from Sasha WHITE."
--- NOTE | 2019-06-14 12:46 | NUR ---
"DAY SURGERY RN | TO OR Patient dentures left in per Dr. Rowe's request."
--- NOTE | 2019-06-14 15:19 | NUR ---
Discharge instructions reviewed with patient. Patient verbalizes understanding. Copy given to patient to take home. Discharged via wheelchair to private car for ride home. Dressing CDI.
== END 2019-06-14 23:05 | disposition home or self-care (01) ==
LOC: ORSCMMR 07:35 → ORD 09:45 → ORSCMMR 09:45
PROVIDERS: Surgery
PROC: B5131ZA Fluoroscopy of Right Jugular Veins using Low Osmolar Contrast, Guidance (ICD-10-PCS; principal; 2019-06-14 09:45)
PROC: 05HM33Z Insertion of Infusion Device into Right Internal Jugular Vein, Percutaneous Approach (ICD-10-PCS; principal; 2019-06-14 09:45)
DX: C34.12 Malignant neoplasm of upper lobe, left bronchus or lung (principal); E87.6 Hypokalemia; I10 Essential (primary) hypertension; I48.91 Unspecified atrial fibrillation; E11.9 Type 2 diabetes mellitus without complications; Z79.899 Other long term (current) drug therapy
CPT/HCPCS: 36415; 77001; 84132; C1788; J0690; J1642; J2704; J3010; J7120